=== PATIENT | male | born 1975 | race Caucasian/White ===

== ENCOUNTER → 2016-09-28 | Outpatient (CLI) | payer OTHER ==
[2016-09-28 12:54] LABS: ESTIMATED AVERAGE GLUCOSE 134 mg/dl; HA1C FLAG Normal (Normal)
[2016-09-28 13:14] LABS: TOTAL IRON BINDING CAPACITY 342 mcg/dl (250-450)
[2016-09-28 13:27] LABS: CALCIUM 10.2 mg/dl (8.5-10.1)
[2016-09-28 13:29] LABS: ALT/SGPT 96 U/L (12-78); AST/SGOT 65 U/L (15-37); BLOOD UREA NITROGEN 18 mg/dl (7-18); CARBON DIOXIDE 30 mmol/L (21-32); CHLORIDE 103 mmol/L (98-107); GLUCOSE 112 mg/dl (70-99); POTASSIUM 3.4 mmol/L (3.5-5.1); SODIUM 141 mmol/L (136-145)
[2016-09-28 13:34] LABS: ALB/GLOB RATIO 1.2 (0.9-2); ALKALINE PHOSPHATASE 46 U/L (45-117); FERRITIN 428.1 ng/ml (8.0-388.0)
--- NOTE | 2016-10-07 09:05 | CODING QUERY MEDICAL NECESSITY ---
CQSUPPORTING DIAGNOSIS NEEDED A supporting diagnosis is required for the test/procedure performed on this patient in order for us to be reimbursed by the patient's insurance. Please provide a supporting diagnosis for the following test/procedure listed below next to the test name along with your signature. *If there is no additional diagnosis for this patient that would support the following test/procedure please document that below next to the test/procedure. Test(s)/Procedure(s) that require a supporting diagnosis: DOS 09/28/16 GLYCATED HEMOGLOBIN TEST Provider Signature: Date: Thank you Marah Calderon Health Information Management Once completed, please kindly fax back to [phone] For questions please call [phone]
== END | disposition home or self-care (01) ==
LOC: C.LABPBG 07:36
PROVIDERS: ATTEND Family Medicine
DX: R74.0 Nonspecific elevation of levels of transaminase and lactic acid dehydrogenase [LDH] (principal); R73.03 Prediabetes; I10 Essential (primary) hypertension

== ENCOUNTER → 2016-11-02 | Outpatient (CLI) | payer OTHER | END | disposition home or self-care (01) | LOC: C.LABPBG 07:58 | PROVIDERS: ATTEND Neuromusculoskeletal Medicine & OMM | DX: E78.1 Pure hyperglyceridemia (principal) ==

== ENCOUNTER → 2016-12-29 | Outpatient (CLI) | payer OTHER ==
[2016-12-29 12:12] LABS: ESTIMATED AVERAGE GLUCOSE 134 mg/dl; HA1C FLAG Normal (Normal)
[2016-12-29 12:16] LABS: ALT/SGPT 56 U/L (12-78); AST/SGOT 35 U/L (15-37); BLOOD UREA NITROGEN 21 mg/dl (7-18); BUN/CREATININE RATIO 15.3 (10-20); CALCIUM 9.9 mg/dl (8.5-10.1); CARBON DIOXIDE 29 mmol/L (21-32); CHLORIDE 102 mmol/L (98-107); CHOLESTEROL 149 mg/dl (0-200); GLUCOSE 93 mg/dl (70-99); POTASSIUM 3.7 mmol/L (3.5-5.1); SODIUM 139 mmol/L (136-145)
[2016-12-29 12:18] LABS: ALB/GLOB RATIO 1.2 (0.9-2); ALKALINE PHOSPHATASE 31 U/L (45-117); CHOLESTEROL/HDL RATIO 4.1; HDL CHOLESTEROL 36 mg/dl; LDL CHOLESTEROL CALCULATED 89 mg/dl; TRIGLYCERIDES 119 mg/dl (0-150); VERY LOW DENSITY LIPOPROT CALC 24 mg/dl
== END | disposition home or self-care (01) ==
LOC: C.LABPBG 07:48
PROVIDERS: ATTEND Family Medicine
DX: E78.1 Pure hyperglyceridemia (principal); R73.03 Prediabetes; R74.8 Abnormal levels of other serum enzymes

== ENCOUNTER → 2017-06-25 | Outpatient (CLI) | payer OTHER ==
[2017-06-25 14:06] LABS: ALBUMIN 4.5 gm/dl (3.4-5.0); ALT/SGPT 58 U/L (12-78); BLOOD UREA NITROGEN 24 mg/dl (7-18); CALCIUM 9.5 mg/dl (8.5-10.1); CARBON DIOXIDE 28 mmol/L (21-32); CHOLESTEROL 153 mg/dl (0-200); CREATININE 1.37 mg/dl (0.60-1.40); GLUCOSE 102 mg/dl (70-99); POTASSIUM 3.9 mmol/L (3.5-5.1); SODIUM 138 mmol/L (136-145)
[2017-06-25 14:09] LABS: ALKALINE PHOSPHATASE 29 U/L (45-117); AST/SGOT 38 U/L (15-37); LDL CHOLESTEROL CALCULATED 96 mg/dl; TOTAL PROTEIN 7.9 gm/dl (6.4-8.2)
[2017-06-26 07:49] LABS: HEMOGLOBIN A1C 6.3 % (4.5-5.6)
== END | disposition home or self-care (01) ==
LOC: C.LABPBG 07:44
PROVIDERS: ATTEND Family Medicine
DX: Q24.9 Congenital malformation of heart, unspecified (principal); E78.1 Pure hyperglyceridemia; R74.8 Abnormal levels of other serum enzymes; R73.03 Prediabetes

== ENCOUNTER 2019-12-03 20:56 | Observation (INO) ==
[2019-12-03] MEDS ORDERED: CEFEPIME 2,000 MG/20 ML VIAL IV STA (21:27)
[2019-12-03] MEDS ORDERED: SODIUM CHLORIDE 0.9% 1000ML 1,000 ML IV SCH (21:30)
[2019-12-03 22:28] LABS: iSTAT Hemoglobin 13.6 g/dl (14.0-18.0); iSTAT Ionized Calcium 1.26 mmol/l (1.12-1.32); iSTAT Potassium 3.6 mmol/L (3.3-5.0)
[2019-12-03 22:34] LABS: Alanine Aminotransferase 23 U/L (12-78); Albumin Level 3.9 gm/dl (3.4-5.0); Aspartate Aminotransferase 26 U/L (15-37); BUN Creatinine Ratio 14.5 (10-20); Blood Urea Nitrogen 17 mg/dl (7-18); Calcium 9.7 mg/dl (8.5-10.1); Carbon Dioxide 26 mmol/L (21-32); Chloride 101 mmol/L (98-107); Creatinine Clr Calc Pharmacy 79.7 ml/min; Est GFR (African American) 85.6; Est GFR (Non-African American) 73.8; Glucose 129 mg/dl (70-99); Potassium 3.7 mmol/L (3.5-5.1); Sodium 133 mmol/L (136-145)
[2019-12-03] MEDS ORDERED: IOVERSOL 100ml IV ONE (22:36)
[2019-12-03 22:42] LABS: Albumin Globulin Ratio 0.9 (0.9-2); Alkaline Phosphatase 29 U/L (45-117); Globulin 4.5 gm/dl (2.5-4.0); Total Protein 8.4 gm/dl (6.4-8.2); Troponin I < 0.015 ng/ml (0-0.045)
--- NOTE | 2019-12-03 23:11 | Emergency Department Note ---
History of Present Illness General Chief complaint: Infection, Wound Stated complaint: ABCESS, LT SIDE, DENTAL PAIN Time Seen by Provider: 12/03/19 21:10 Source: patient Mode of arrival: ambulatory Limitations: no limitations History of Present Illness Provider complaint: Left side facial swelling Onset (ago): day(s) 2 Location: face Radiation: non-radiation Severity: moderate Pain Consistency: + constant Maximum Pain Intensity: 4 Current Pain Intensity: 4 Quality: + aching Relieved By: + none Exacerbated By: + movement and + other (palpation) Associated symptoms: + denies other symptoms Treatments prior to arrival: NSAID and other (Amoxicillin, PCN) This 44-year-old male patient with significant past medical history of congenital heart disease, multiple open heart surgeries, and dental infections presents to the emergency department today via private vehicle accompanied by his father. The patient is complaining of left sided facial swelling and a possible abscessed tooth. The patient states his left cheek became puffy yesterday. He awoke yesterday morning with a sore gum, then noticed the swelling last evening. His father started him on amoxicillin which was left over from a previous prescription, and today he was able to contact a medical provider and was given a prescription for penicillin. He has been taking this medication throughout the day today, but continued to notice worsening swelling and redness of the left side of the face. The patient did have a fever of 101 F earlier today. The patient did have Advil at 4 PM this evening. His father does report history of dental abscess and infections in the past, managed with root canals and antibiotics as well as antibiotic mouthwash. Patient did have a similar infection in the gum last year, but this seemed to improve with antibiotics. The patient rates his pain a 4/10 and describes it as throbbing. He denies any chest pain, dyspnea, nausea, vomiting, numbness, tingling, or weakness. He denies any history of pericarditis or endocarditis. Home Medications Home Medications Medication Instructions Recorded Confirmed Type clotrimazole 1 % topical cream 1 appln TOPICAL BID PRN #45 gm 12/30/18 12/03/19 History lisinopril 10 mg tablet 10 mg PO QAM #30 tab 12/30/18 12/03/19 History multivitamin 1 tab PO QAM 12/30/18 12/03/19 History hydrochlorothiazide 25 mg PO QAM 04/25/19 12/03/19 History pantoprazole 40 mg PO QAM 04/25/19 12/03/19 History fenofibrate nanocrystallized 145 145 mg PO QAM #90 tab 07/19/19 12/03/19 Rx mg tablet Penicillin Tab 500 mg PO TID 12/03/19 12/03/19 History ibuprofen [Advil] 400 - 600 mg PO Q6H PRN 12/03/19 12/03/19 History Allergies Allergy/AdvReac Type Severity Reaction Status Date / Time No Known Drug Allergies Allergy Verified 08/29/19 13:07 Past Med/Surg History Medical History Carpal tunnel syndrome of left wrist Cognitive developmental delay Congenital heart disease FOLLOWS WITH [facility] GERD without esophagitis Hypertension Hypertriglyceridemia Iron deficiency Prediabetes DIET CONTROL Pulmonary vein stenosis FOLLOWS WITH [facility] 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 MCKNIGHT> @ [facility] History of cardiac cath 2 YRS AGO >JUST FOR FOLLOW UP OF 2010 HEART SURGERY> [facility] > NO STENTS S/P carpal tunnel release Family History Grandfather Colorectal cancer Myocardial infarction Father Diabetes Brother Melanoma Denies family history of Ovarian cancer Prostate cancer Breast cancer Social History Smoking Status: Never smoker Second Hand Exposure: No; Hx Alcohol Use: Yes Alcohol type: beer Alcohol Intake Frequency Comment: socially Hx Substance Use: No Preferred Language: Upper Sorbian Communication Ability: Effective Visual Impairment: No Limitations Hearing Ability: Normal Collar Stay Fuser Tender Required: No Beliefs That Will Affect Care: None marital status: Single Current Living Situation: Family current occupational status: unemployed Feels Safe at Home: Yes Childhood Exposure to Second-Hand Smoke: No caffeine: Yes (Soda x 1 per day.) during the past year weight has: remained stable Dental Care, Regularly: Yes Physical Activity Frequency: 3-4 Times per Week Seatbelt Use: always Sunscreen Use: Yes Review of Systems A total of 10 systems reviewed and were otherwise negative Physical Exam Vital Signs Vital Signs - 24 hr 12/03/19 21:01 12/03/19 23:00 12/03/19 23:25 Temperature 37.5 C Temperature Source Oral Pulse Rate 105 H 95 H Pulse Rate [Left Radial] 96 H Pulse Rhythm [Left Radial] Regular Pulse Strength [Left Radial] Normal Respiratory Rate 20 18 30 H Respiratory Effort / Characteristics Non-Labored Spontaneous Non-Labored Respiratory Depth Normal Normal Respiratory Pattern Regular Blood Pressure 126/77 138/82 Blood Pressure [Right Arm] 138/82 Blood Pressure Mean 93 92 Blood Pressure Mean [Right Arm] 100 Blood Pressure Position [Right Arm] Lying Pulse Oximetry 100 97 97 Oxygen Delivery Method Room Air Room Air Room Air Sepsis Recent Fever Within 48 Hours Yes Sepsis New/Unexplained Change in Mental Status N/A Sepsis Action Taken by Nursing No Action Required VITALS: Vitals are noted on the nurse's note and reviewed by myself. Patient is tachycardic and tachypneic. He is afebrile at this time. He is normotensive and not hypoxic. GENERAL: This is a 44-year-old white male, in no acute distress, nondiaphoretic, well-developed well-nourished. SKIN: Erythema and edema of the left side of the face overlying the maxilla and extending to the buccal mucosa with tenderness of the left sinus to percussion. The skin was otherwise without rashes, erythema, edema, or bruising. There is no tenting of the skin. Capillary refill less than 2 seconds. HEAD: Normocephalic atraumatic. EARS: External auditory canals clear, tympanic membranes pearly pelaez without erythema or effusion bilaterally. EYES: Pupils equal round and reactive to light and accommodation. Conjunctivae without injection, sclerae without icterus. Extraocular movements intact. NOSE: Patent, turbinates without inflammation or discharge. No sinus tenderness. MOUTH: Mucous membranes moist. Tonsils are not enlarged. Pharynx without erythema or exudate. Uvula midline. Airway patent. Tongue does not deviate. Dental caries noted in the left upper teeth, but no tenderness to percussion. NECK: Supple without nuchal rigidity. Cervical and submandibular lymphadenopathy noted on the left. Cervical spine is nontender. No JVD. HEART: Regular rate and rhythm without murmurs gallops or rubs. LUNGS: Clear to auscultation bilaterally without wheezes, rales or rhonchi. No retractions or accessory muscle use. MUSCULOSKELETAL: No muscle atrophy, erythema, or edema noted. Full range of motion without joint tenderness in all extremities. No tenderness to palpation. Normal gait. Strength 5/5 throughout. NEURO: Patient was alert and oriented to person place and time. Normal sensation to light and sharp touch. No focal neurological deficits. Course Course The patient was seen and evaluated as above. An order was placed for continuous cardiac monitoring. The monitor shows a sinus tachycardia at a rate of 111 bpm. IV access obtained, labs drawn. Patient medicated with IV fluids and cefepime. Imaging performed and reviewed by myself and radiologist as noted. Labs reviewed by myself. I discussed the case with Dr. Baum, maxillofacial surgeon. He was agreeable that the patient would benefit from inpatient care and recommends admission to medicine and will consult in the morning. I discussed the findings and recommendation with the patient at bedside. He and his father were agreeable to admission. I discussed case with the sub plant manager. I discussed the case with Dr. Castellanos, [facility]. She did agree to see and evaluate the patient. I discussed the case with my attending. Discharge instructions reviewed, the patient was discharged home in good condition. Administered Medications Discontinued Medications Sodium Chloride (Nss 1000ml) 1,000 mls @ 999 mls/hr IV .Q1H1M EMRE Stop: 12/03/19 22:30 Last Infusion: 12/03/19 23:22 Dose: 0 mls/hr Documented by: [id number] Admin: 12/03/19 22:24 Dose: 999 mls/hr Documented by: [id number] Cefepime HCl (Maxipime) 2,000 mg in 20 mls @ 5 mls/min IV NOW STA; Protocol Stop: 12/03/19 21:30 Last Admin: 12/03/19 22:24 Dose: 5 mls/min Documented by: [id number] Ioversol (Ioversol 100ml) 93 ml IV ONCE ONE Stop: 12/03/19 22:37 Last Admin: 12/03/19 22:36 Dose: 93 ml Documented by: [id number] Medical Decision Making Differential Diagnosis Cellulitis, abscess, MRSA infection, necrotizing fasciitis, allergic reaction, Jef's angina, Vincent's angina, malignancy, as well as other pathologies. Medical Records Attestation: I reviewed the patient's medical records. Home Medications Current Medication List: was personally reviewed by me Laboratory Data Attestation: I reviewed the patient's lab results. Mild leukocytosis of 11,000. Mild anemia with a hemoglobin of 12.8, hematocrit of 37.2. Renal, hepatic function and electrolytes without significant abnormality. Glucose 130. Troponin negative. Procalcitonin 0.05. Lactic acid 1.4. Blood cultures pending. Result diagrams: 12/03/19 23:07 12/03/19 22:00 Lab Results 12/03/19 12/03/19 12/03/19 Range/Units 22:00 22:00 22:00 WBC Cancelled RBC Cancelled Hgb Cancelled POC Hgb (14.0-18.0) g/dl Hct Cancelled POC Hct (42-52) % MCV Cancelled MCH Cancelled MCHC Cancelled RDW Std Deviation Cancelled RDW Coeff of Kathy Cancelled Plt Count Cancelled MPV Cancelled Immature Gran % (Auto) Cancelled Neut % (Auto) Cancelled Lymph % (Auto) Cancelled Leake % (Auto) Cancelled Eos % (Auto) Cancelled Baso % (Auto) Cancelled Neut # (Auto) Cancelled Lymph # (Auto) Cancelled Leake # (Auto) Cancelled Eos # (Auto) Cancelled Baso # (Auto) Cancelled Immature Gran # (Auto) Cancelled Absolute Nucleated RBC Cancelled Nucleated RBC % (auto) Cancelled Neutrophils % (Manual) Cancelled Band Neutrophils % Cancelled Lymphocytes % (Manual) Cancelled Prolymphocyte % Cancelled Reactive Lymphs % (Man) Cancelled Monocytes % (Manual) Cancelled Eosinophils % (Manual) Cancelled Basophils % (Manual) Cancelled Metamyelocytes % (Man) Cancelled Myelocytes % (Man) Cancelled Promyelocytes % (Man) Cancelled Blast Cells % (Manual) Cancelled Plasma Cell % (Manual) Cancelled Other Cells % Cancelled Nucleated RBC % Cancelled Neutrophils # (Manual) Cancelled Band Neutrophils # Cancelled Total Absolute Neuts Cancelled Lymphocytes # (Manual) Cancelled Prolymphocyte # Cancelled Reactive Lymphs # Cancelled Total Abs Lymphocytes Cancelled Monocytes # (Manual) Cancelled Eosinophils # (Manual) Cancelled Basophils # (Manual) Cancelled Metamyelocytes # (Man) Cancelled Myelocytes # (Manual) Cancelled Promyelocytes # (Man) Cancelled Blast Cells # (Man) Cancelled Plasma Cell # (Manual) Cancelled Other Cells # Cancelled Nucleated RBCs # (Man) Cancelled Hypersegmented Neuts Cancelled Hyposegmented Neuts Cancelled Hypogranular Neuts Cancelled Large Granular Lymphs Cancelled # Lrg Granular Lymphs Cancelled Hairy Cells Cancelled Smudge Cells Cancelled Toxic Granulation Cancelled Toxic Vacuolation Cancelled Dohle Bodies Cancelled Antionette Rods Cancelled Platelet Estimate Cancelled Hypogranular Platelets Cancelled Clumped Platelets Cancelled Giant Platelets Cancelled Platelet Satelliting Cancelled RBC Morphology Cancelled Polychromasia Cancelled Hypochromasia Cancelled Poikilocytosis Cancelled Basophilic Stippling Cancelled Anisocytosis Cancelled Microcytosis Cancelled Macrocytosis Cancelled Spherocytes Cancelled Pappenheimer Bodies Cancelled Sickle Cells Cancelled Target Cells Cancelled Tear Drop Cells Cancelled Ovalocytes Cancelled Stomatocytes Cancelled Kolb-Young Bodies Cancelled Echinocytes Cancelled Acanthocytes (Spur) Cancelled Rouleaux Cancelled RBC Agglutinates Cancelled Schistocytes Cancelled RBC Morph Comment Cancelled Sezary Cell Cancelled PT Cancelled INR Cancelled APTT Cancelled PTT Ratio Cancelled POC Sodium (135-144) mmol/L Sodium 133 L (136-145) mmol/L POC Potassium (3.3-5.0) mmol/L Potassium 3.7 (3.5-5.1) mmol/L POC Chloride (101-112) mmol/L Chloride 101 (98-107) mmol/L Carbon Dioxide 26 (21-32) mmol/L POC Total CO2 (24-31) mmol/L Anion Gap 7.0 (3-11) POC Anion Gap (16-25) mmol/L POC BUN (7-18) mg/dl BUN 17 (7-18) mg/dl Creatinine 1.19 (0.6-1.4) mg/dl POC Creatinine (0.6-1.3) mg/dl Est Cr Clr Drug Dosing 79.7 ml/min Est GFR ( Amer) 85.6 Est GFR (Non-Af Amer) 73.8 BUN/Creatinine Ratio 14.5 (10-20) Glucose 129 H (70-99) mg/dl POC Glucose (other) (70-99) mg/dl Lactate (0.4-2.0) mmol/L Calcium 9.7 (8.5-10.1) mg/dl POC Ioniz Calcium Sue (1.12-1.32) mmol/l Magnesium 2.0 (1.8-2.4) mg/dl Total Bilirubin 1.0 (0.2-1) mg/dl AST 26 (15-37) U/L ALT 23 (12-78) U/L Alkaline Phosphatase 29 L (45-117) U/L Troponin I < 0.015 (0-0.045) ng/ml Total Protein 8.4 H (6.4-8.2) gm/dl Albumin 3.9 (3.4-5.0) gm/dl Globulin 4.5 H (2.5-4.0) gm/dl Albumin/Globulin Ratio 0.9 (0.9-2) Procalcitonin (0-0.5) ng/ml Specimen Hemolysis 12/03/19 12/03/19 12/03/19 Range/Units 22:00 22:00 22:14 WBC RBC Hgb POC Hgb 13.6 L (14.0-18.0) g/dl Hct POC Hct 40 L (42-52) % MCV MCH MCHC RDW Std Deviation RDW Coeff of Kathy Plt Count MPV Immature Gran % (Auto) Neut % (Auto) Lymph % (Auto) Leake % (Auto) Eos % (Auto) Baso % (Auto) Neut # (Auto) Lymph # (Auto) Leake # (Auto) Eos # (Auto) Baso # (Auto) Immature Gran # (Auto) Absolute Nucleated RBC Nucleated RBC % (auto) Neutrophils % (Manual) Band Neutrophils % Lymphocytes % (Manual) Prolymphocyte % Reactive Lymphs % (Man) Monocytes % (Manual) Eosinophils % (Manual) Basophils % (Manual) Metamyelocytes % (Man) Myelocytes % (Man) Promyelocytes % (Man) Blast Cells % (Manual) Plasma Cell % (Manual) Other Cells % Nucleated RBC % Neutrophils # (Manual) Band Neutrophils # Total Absolute Neuts Lymphocytes # (Manual) Prolymphocyte # Reactive Lymphs # Total Abs Lymphocytes Monocytes # (Manual) Eosinophils # (Manual) Basophils # (Manual) Metamyelocytes # (Man) Myelocytes # (Manual) Promyelocytes # (Man) Blast Cells # (Man) Plasma Cell # (Manual) Other Cells # Nucleated RBCs # (Man) Hypersegmented Neuts Hyposegmented Neuts Hypogranular Neuts Large Granular Lymphs # Lrg Granular Lymphs Hairy Cells Smudge Cells Toxic Granulation Toxic Vacuolation Dohle Bodies Antionette Rods Platelet Estimate Hypogranular Platelets Clumped Platelets Giant Platelets Platelet Satelliting RBC Morphology Polychromasia Hypochromasia Poikilocytosis Basophilic Stippling Anisocytosis Microcytosis Macrocytosis Spherocytes Pappenheimer Bodies Sickle Cells Target Cells Tear Drop Cells Ovalocytes Stomatocytes Kolb-Young Bodies Echinocytes Acanthocytes (Spur) Rouleaux RBC Agglutinates Schistocytes RBC Morph Comment Sezary Cell PT INR APTT PTT Ratio POC Sodium 135 (135-144) mmol/L Sodium (136-145) mmol/L POC Potassium 3.6 (3.3-5.0) mmol/L Potassium (3.5-5.1) mmol/L POC Chloride 99 L (101-112) mmol/L Chloride (98-107) mmol/L Carbon Dioxide (21-32) mmol/L POC Total CO2 23 L (24-31) mmol/L Anion Gap (3-11) POC Anion Gap 18.0 (16-25) mmol/L POC BUN 18 (7-18) mg/dl BUN (7-18) mg/dl Creatinine (0.6-1.4) mg/dl POC Creatinine 1.0 (0.6-1.3) mg/dl Est Cr Clr Drug Dosing ml/min Est GFR ( Amer) Est GFR (Non-Af Amer) BUN/Creatinine Ratio (10-20) Glucose (70-99) mg/dl POC Glucose (other) 130 H (70-99) mg/dl Lactate 1.4 (0.4-2.0) mmol/L Calcium (8.5-10.1) mg/dl POC Ioniz Calcium Sue 1.26 (1.12-1.32) mmol/l Magnesium (1.8-2.4) mg/dl Total Bilirubin (0.2-1) mg/dl AST (15-37) U/L ALT (12-78) U/L Alkaline Phosphatase (45-117) U/L Troponin I (0-0.045) ng/ml Total Protein (6.4-8.2) gm/dl Albumin (3.4-5.0) gm/dl Globulin (2.5-4.0) gm/dl Albumin/Globulin Ratio (0.9-2) Procalcitonin 0.05 (0-0.5) ng/ml Specimen Hemolysis 12/03/19 12/03/19 Range/Units 23:07 23:07 WBC 11.58 H RBC 4.46 L Hgb 12.8 L POC Hgb (14.0-18.0) g/dl Hct 37.2 L POC Hct (42-52) % MCV 83.4 MCH 28.7 MCHC 34.4 RDW Std Deviation 37.9 RDW Coeff of Kathy 12.5 Plt Count 282 MPV 9.4 Immature Gran % (Auto) 0.2 Neut % (Auto) 82.9 Lymph % (Auto) 9.4 Leake % (Auto) 7.3 Eos % (Auto) 0.2 Baso % (Auto) 0.0 Neut # (Auto) 9.61 H Lymph # (Auto) 1.09 L Leake # (Auto) 0.84 H Eos # (Auto) 0.02 Baso # (Auto) 0.00 Immature Gran # (Auto) 0.02 Absolute Nucleated RBC Nucleated RBC % (auto) Neutrophils % (Manual) Band Neutrophils % Lymphocytes % (Manual) Prolymphocyte % Reactive Lymphs % (Man) Monocytes % (Manual) Eosinophils % (Manual) Basophils % (Manual) Metamyelocytes % (Man) Myelocytes % (Man) Promyelocytes % (Man) Blast Cells % (Manual) Plasma Cell % (Manual) Other Cells % Nucleated RBC % Neutrophils # (Manual) Band Neutrophils # Total Absolute Neuts Lymphocytes # (Manual) Prolymphocyte # Reactive Lymphs # Total Abs Lymphocytes Monocytes # (Manual) Eosinophils # (Manual) Basophils # (Manual) Metamyelocytes # (Man) Myelocytes # (Manual) Promyelocytes # (Man) Blast Cells # (Man) Plasma Cell # (Manual) Other Cells # Nucleated RBCs # (Man) Hypersegmented Neuts Hyposegmented Neuts Hypogranular Neuts Large Granular Lymphs # Lrg Granular Lymphs Hairy Cells Smudge Cells Toxic Granulation Toxic Vacuolation Dohle Bodies Antionette Rods Platelet Estimate Hypogranular Platelets Clumped Platelets Giant Platelets Platelet Satelliting RBC Morphology Polychromasia Hypochromasia Poikilocytosis Basophilic Stippling Anisocytosis Microcytosis Macrocytosis Spherocytes Pappenheimer Bodies Sickle Cells Target Cells Tear Drop Cells Ovalocytes Stomatocytes Kolb-Young Bodies Echinocytes Acanthocytes (Spur) Rouleaux RBC Agglutinates Schistocytes RBC Morph Comment Sezary Cell PT 11.1 INR 1.1 APTT 30.3 PTT Ratio 1.1 POC Sodium (135-144) mmol/L Sodium (136-145) mmol/L POC Potassium (3.3-5.0) mmol/L Potassium (3.5-5.1) mmol/L POC Chloride (101-112) mmol/L Chloride (98-107) mmol/L Carbon Dioxide (21-32) mmol/L POC Total CO2 (24-31) mmol/L Anion Gap (3-11) POC Anion Gap (16-25) mmol/L POC BUN (7-18) mg/dl BUN (7-18) mg/dl Creatinine (0.6-1.4) mg/dl POC Creatinine (0.6-1.3) mg/dl Est Cr Clr Drug Dosing ml/min Est GFR ( Amer) Est GFR (Non-Af Amer) BUN/Creatinine Ratio (10-20) Glucose (70-99) mg/dl POC Glucose (other) (70-99) mg/dl Lactate (0.4-2.0) mmol/L Calcium (8.5-10.1) mg/dl POC Ioniz Calcium Sue (1.12-1.32) mmol/l Magnesium (1.8-2.4) mg/dl Total Bilirubin (0.2-1) mg/dl AST (15-37) U/L ALT (12-78) U/L Alkaline Phosphatase (45-117) U/L Troponin I (0-0.045) ng/ml Total Protein (6.4-8.2) gm/dl Albumin (3.4-5.0) gm/dl Globulin (2.5-4.0) gm/dl Albumin/Globulin Ratio (0.9-2) Procalcitonin (0-0.5) ng/ml Specimen Hemolysis Imaging Data Radiologist's Impression: CT NECK: There is soft tissue swelling involving the subcutaneous soft tissues overlying the anterolateral aspect of the left maxilla. In addition, just adjacent to the inferior aspect of the anterior wall of the left maxillarysinus there is a fluid collection with peripheral enhancement and punctate air consistent with an abscess measuring 1.6 x 0.8 cmin axial dimension by1.3 cmin craniocaudal dimension. No bonyabnormalityin the adjacent maxilla or mandible. There is diffuse mucosal thickening of the left maxillarysinus, likelysequela of chronic sinusitis. Remainder of the paranasal sinuses and bilateral mastoids are clear. Lung apices are clear. Mild left-sided submandibular lymphadenopathy. This is likelyreactive. Radiologist: Rita Vasques MD ECG Data Attestation: I personally reviewed and interpreted this ECG as follows: Indication: + other (sepsis, hx. congenital heart disease) Rate (beats per minute): 97 Rhythm: + normal sinus ECG Intervals/blocks: + Right Bundle branch block ECG [place]: + Normal ECG ST segments: + T-wave inversions (Anterior, inferior) Comparison ECG Date: no prior available Blood Pressure Blood Pressure Findings: Elevated blood pressure Blood Pressure Disposition: elevated BP felt to be situational MDM Narrative This 44-year-old male patient presents emergency department today for evaluation of facial cellulitis, possible dental infection. He does have history of con genital heart disease. Patient was febrile earlier today and has developed rapidly progressing redness, swelling, and pain in the left side of the face. Given his history, vital signs, and physical examination, I did initiate septic work-up. The patient was immediately treated with cefepime and IV fluids. Laboratory evaluation with mild leukocytosis and mild anemia. CT imaging consistent with a left-sided facial cellulitis in the area of the left maxilla as well as abscess in the anterior inferior wall of the left maxillary sinus measuring 1.6 x 0.8 cm. I did discuss the case with the maxillofacial surgeon, Dr. Baum. He was agreeable that the patient would benefit from ongoing IV ant ibiotics and inpatient stay. Patient will be admitted to the [facility]. The chart was completed utilizing [employer] voice recognition software. Grammatical errors, random word insertions, pronoun errors, and incomplete sentences are an occasional consequence of this system due to software limitations, ambient noise, and hardware issues. Any formal questions or concern s about the content, text, or information contained within the body of this dictation should be directly addressed to the provider for clarification. Impression & Plan Cellulitis and abscess of face, Acute abscess of maxillary sinus, Fever, Tachycardia Discharge Plan Visit Data Chief Complaint: Infection, Wound Stated Complaint: ABCESS, LT SIDE, DENTAL PAIN ED Provider: Landen Gee ED Midlevel Provider: Dariana Ramon Discharge Problem: Cellulitis and abscess of face, Acute abscess of maxillary sinus, Fever, Tachycardia Patient Disposition: Admitted As Inpatient Forms Stand Alone Forms: [facility], Virtual Emergency Department, Important Visit Information Prescriptions Prescriptions: No Action fenofibrate nanocrystallized 145 mg tablet 145 mg PO QAM Qty: 90 RF: 1 clotrimazole 1 % cream 1 appln topical BID PRN (Reason: Rash) Qty: 45 RF: 0 lisinopril 10 mg tablet 10 mg PO QAM Qty: 30 RF: 0 multivitamin [Daily Multi-Vitamin] tablet 1 tab PO QAM RF: 0 pantoprazole 40 mg tablet,delayed release (DR/EC) 40 mg PO QAM RF: 0 hydrochlorothiazide 25 mg tablet 25 mg PO QAM RF: 0 ibuprofen [Advil] 200 mg Tablet 400 - 600 mg PO Q6H PRN (Reason: Pain) RF: 0 Penicillin Tab 500 mg PO TID RF: 0 Referrals Referrals: Johanna Moreno DO [Primary Care Provider] - Discharge Problem: Fever Qualifiers: Fever type: unspecified Qualified Code(s): R50.9 - Fever, unspecified
[2019-12-03 23:20] LABS: Eosinophils # (auto) 0.02 K/uL (0-0.5); Eosinophils % (auto) 0.2 %; Hematocrit (blood only) 37.2 % (42-52); Hemoglobin 12.8 g/dL (14.0-18.0); Immature Granulocytes # (auto) 0.02 K/uL (0.00-0.02); Immature Granulocytes % (auto) 0.2 %; Lymphocytes # (auto) 1.09 K/uL (1.2-3.4); Lymphocytes % (auto) 9.4 %; Mean Corpuscular Hemoglobin 28.7 pg (25-34); Mean Corpuscular Hgb Conc 34.4 g/dL (32-36); Mean Corpuscular Volume 83.4 fL (80-100); Mean Platelet Volume 9.4 fL (7.4-10.4); Monocytes # (auto) 0.84 K/uL (0.11-0.59); Monocytes % (auto) 7.3 %; Neutrophils # (auto) 9.61 K/uL (1.4-6.5); Neutrophils % (auto) 82.9 %; Platelet Count 282 K/uL (130-400); RDW Coefficient of Variation 12.5 % (11.5-14.5); RDW Standard Deviation 37.9 fL (36.4-46.3); Red Blood Count 4.46 M/uL (4.7-6.1); White Blood Count 11.58 K/uL (4.8-10.8)
[2019-12-03 23:31] LABS: INR 1.1 (0.9-1.1); Partial Thromboplastin Ratio 1.1; Partial Thromboplastin Time 30.3 Seconds (21.0-31.0); Prothrombin Time 11.1 Seconds (9.0-12.0)
--- NOTE | 2019-12-03 23:50 | Emergency Department Note ---
ED Visit Note The patient presents with a facial cellulitis. I have personally seen and evaluated the patient with the physician personnel assistant. I agree with the diagnostic/management decisions and have personally been involved in these decisions and agree with the diagnosis. .
--- NOTE | 2019-12-04 00:19 | History & Physical Report ---
Date of Service December 04, 2019 Assessment & Plan (1) Cellulitis and abscess of face: 44yo C male with history of congenital heart defect s/p repair, HTN/HLP/GERD presenting with cellulitis of left face, abscess. Patient afebrile, HD stable, nontoxic in appearance. -Observation to medical floor -Followup cultures sent from ER -Unasyn 3gm IV q 6 hours -Warm compresses -Tylenol as needed for pain or fever. Patient denies pain at this time -OMFS consultation - assistance appreciated -Possible OR tomorrow for abscess drainage. -Keep patient NPO overnight -Check pre-operative COVID-19 test Present on Admission?: Yes (2) Congenital heart disease: S/p surgical repair. Patient follows at [facility] in [place] Present on Admission?: Yes (3) GERD without esophagitis: Chronic. Well controlled -Continue Protonix 40mg po daily Present on Admission?: Yes (4) Hypertension: Blood pressure stable, 131/82 -Continue Lisinopril 10mg po qAM -Continue HCTZ 25mg po qAM -Continue to [facility] Present on Admission?: Yes (5) Hypertriglyceridemia: Chronic. -Continue Tricor 145mg po qAM F/E/N - NSS at 80mL/hr x 2 liters, electrolytes WNL, NPO for now Ppx - Low risk for DVT. Encourage ambulation. Protonix as above Code - Full per discussion with patient Dispo - Observation to medical floor Present on Admission?: Yes History of Present Illness Chief Complaint: facial cellulitis Primary Care Provider: Johanna Moreno DO Brian Babcock is a 44yo C male with history of congenital heart defect s/p repair, HTN, HLP and GERD presenting with left facial cellulitis. Patient had soreness of left maxillary gum on buccal side that began 2 days ago. . He took some Amoxicillin and Advil at home on Wednesday then took some Penicillin this morn ing. He notes some improvement in swelling. Pain is well controlled No trauma, no tooth complaints Patient denies swelling of throat, palate, difficulty swallowing or breathing. Denies drainage or foul taste in mouth. No additional complaints at this time. ER Course: Cefepime, IVF Allergies Allergy/AdvReac Type Severity Reaction Status Date / Time No Known Drug Allergies Allergy Verified 08/29/19 13:07 Home Medications Home Medications Medication Instructions Recorded Confirmed Type clotrimazole 1 % topical cream 1 appln TOPICAL BID PRN #45 gm 12/30/18 12/03/19 History lisinopril 10 mg tablet 10 mg PO QAM #30 tab 12/30/18 12/03/19 History multivitamin 1 tab PO QAM 12/30/18 12/03/19 History hydrochlorothiazide 25 mg PO QAM 04/25/19 12/03/19 History pantoprazole 40 mg PO QAM 04/25/19 12/03/19 History fenofibrate nanocrystallized 145 145 mg PO QAM #90 tab 07/19/19 12/03/19 Rx mg tablet Penicillin Tab 500 mg PO TID 12/03/19 12/03/19 History ibuprofen [Advil] 400 - 600 mg PO Q6H PRN 12/03/19 12/03/19 History Past Med/Surg History Medical History Carpal tunnel syndrome of left wrist Cognitive developmental delay Congenital heart disease FOLLOWS WITH [facility] GERD without esophagitis Hypertension Hypertriglyceridemia Iron deficiency Prediabetes DIET CONTROL Pulmonary vein stenosis FOLLOWS WITH [facility] 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 MCKNIGHT> @ [facility] History of cardiac cath 2 YRS AGO >JUST FOR FOLLOW UP OF 2010 HEART SURGERY> [facility] > NO STENTS S/P carpal tunnel release Family History Grandfather Colorectal cancer Myocardial infarction Father Diabetes Brother Melanoma Denies family history of Ovarian cancer Prostate cancer Breast cancer Social History Smoking Status: Never smoker Second Hand Exposure: No; Hx Alcohol Use: No Hx Substance Use: No Preferred Language: Occitan Communication Ability: Effective Visual Impairment: No Limitations Hearing Ability: Normal Floor Finisher Required: No Beliefs That Will Affect Care: None marital status: Single Current Living Situation: Parent current occupational status: unemployed Other Information That Helps Us Care for You: No Feels Safe at Home: Yes Safety Concerns: Feels Safe At This Time Childhood Exposure to Second-Hand Smoke: No caffeine: Yes (Soda x 1 per day.) during the past year weight has: remained stable Dental Care, Regularly: Yes Physical Activity Frequency: 3-4 Times per Week Seatbelt Use: always Sunscreen Use: Yes Review of Systems Review of Systems: All systems reviewed & are unremarkable except as noted in HPI & below Physical Exam Physical Exam: General: patient resting comfortably, NAD, non-toxic in appearance, AA&O x 4 Skin: warm, dry, intact, redness and swelling of left face HEENT: NC/AT, PERRL, EOMI, anicteric sclera, conjunctiva without injection, external ear normal to inspection and nontender, nares patent, moist mucus membranes, dentition intact, no oropharyngeal lesions, neck supple, trachea midline, no LAD, no thyromegaly, no JVD. Redness and swelling of left face, tender to palpation. Heart: +S1/S2, regular, no m/r/g Lungs: equal air entry bilaterally, no rales/rhonchi/wheezes Abd: +BS, soft, NT/ND, no masses/organomegaly/ascites Ext: warm, 2+ pulses in UE/LE bilaterally, no clubbing/cyanosis or edema Neuro: nonfocal, patient AA&O x 4, speech intact, no facial droop, moving all extremities on command with equal strength 5/5 Results & Data Results & Data ([facility]) Vital Signs (Past 12 Hours) Vital Signs Temp Pulse Pulse Resp BP BP Pulse Ox 12/03/19 23:25 95 H 30 H 138/82 97 12/03/19 23:00 96 H 18 138/82 97 12/03/19 21:01 37.5 C 105 H 20 126/77 100 Laboratory Results Lab Results 12/03/19 12/03/19 12/03/19 Range/Units 22:00 22:00 22:00 WBC Cancelled RBC Cancelled Hgb Cancelled POC Hgb (14.0-18.0) g/dl Hct Cancelled POC Hct (42-52) % MCV Cancelled MCH Cancelled MCHC Cancelled RDW Std Deviation Cancelled RDW Coeff of Kathy Cancelled Plt Count Cancelled MPV Cancelled Immature Gran % (Auto) Cancelled Neut % (Auto) Cancelled Lymph % (Auto) Cancelled Letcher % (Auto) Cancelled Eos % (Auto) Cancelled Baso % (Auto) Cancelled Neut # (Auto) Cancelled Lymph # (Auto) Cancelled Letcher # (Auto) Cancelled Eos # (Auto) Cancelled Baso # (Auto) Cancelled Immature Gran # (Auto) Cancelled Absolute Nucleated RBC Cancelled Nucleated RBC % (auto) Cancelled Neutrophils % (Manual) Cancelled Band Neutrophils % Cancelled Lymphocytes % (Manual) Cancelled Prolymphocyte % Cancelled Reactive Lymphs % (Man) Cancelled Monocytes % (Manual) Cancelled Eosinophils % (Manual) Cancelled Basophils % (Manual) Cancelled Metamyelocytes % (Man) Cancelled Myelocytes % (Man) Cancelled Promyelocytes % (Man) Cancelled Blast Cells % (Manual) Cancelled Plasma Cell % (Manual) Cancelled Other Cells % Cancelled Nucleated RBC % Cancelled Neutrophils # (Manual) Cancelled Band Neutrophils # Cancelled Total Absolute Neuts Cancelled Lymphocytes # (Manual) Cancelled Prolymphocyte # Cancelled Reactive Lymphs # Cancelled Total Abs Lymphocytes Cancelled Monocytes # (Manual) Cancelled Eosinophils # (Manual) Cancelled Basophils # (Manual) Cancelled Metamyelocytes # (Man) Cancelled Myelocytes # (Manual) Cancelled Promyelocytes # (Man) Cancelled Blast Cells # (Man) Cancelled Plasma Cell # (Manual) Cancelled Other Cells # Cancelled Nucleated RBCs # (Man) Cancelled Hypersegmented Neuts Cancelled Hyposegmented Neuts Cancelled Hypogranular Neuts Cancelled Large Granular Lymphs Cancelled # Lrg Granular Lymphs Cancelled Hairy Cells Cancelled Smudge Cells Cancelled Toxic Granulation Cancelled Toxic Vacuolation Cancelled Dohle Bodies Cancelled Antionette Rods Cancelled Platelet Estimate Cancelled Hypogranular Platelets Cancelled Clumped Platelets Cancelled Giant Platelets Cancelled Platelet Satelliting Cancelled RBC Morphology Cancelled Polychromasia Cancelled Hypochromasia Cancelled Poikilocytosis Cancelled Basophilic Stippling Cancelled Anisocytosis Cancelled Microcytosis Cancelled Macrocytosis Cancelled Spherocytes Cancelled Pappenheimer Bodies Cancelled Sickle Cells Cancelled Target Cells Cancelled Tear Drop Cells Cancelled Ovalocytes Cancelled Stomatocytes Cancelled Kol[place] Bodies Cancelled Echinocytes Cancelled Acanthocytes (Spur) Cancelled Rouleaux Cancelled RBC Agglutinates Cancelled Schistocytes Cancelled RBC Morph Comment Cancelled Sezary Cell Cancelled PT Cancelled INR Cancelled APTT Cancelled PTT Ratio Cancelled POC Sodium (135-144) mmol/L Sodium 133 L (136-145) mmol/L POC Potassium (3.3-5.0) mmol/L Potassium 3.7 (3.5-5.1) mmol/L POC Chloride (101-112) mmol/L Chloride 101 (98-107) mmol/L Carbon Dioxide 26 (21-32) mmol/L POC Total CO2 (24-31) mmol/L Anion Gap 7.0 (3-11) POC Anion Gap (16-25) mmol/L POC BUN (7-18) mg/dl BUN 17 (7-18) mg/dl Creatinine 1.19 (0.6-1.4) mg/dl POC Creatinine (0.6-1.3) mg/dl Est Cr Clr Drug Dosing 79.7 ml/min Est GFR ( Amer) 85.6 Est GFR (Non-Af Amer) 73.8 BUN/Creatinine Ratio 14.5 (10-20) Glucose 129 H (70-99) mg/dl POC Glucose (other) (70-99) mg/dl Lactate (0.4-2.0) mmol/L Calcium 9.7 (8.5-10.1) mg/dl POC Ioniz Calcium Sue (1.12-1.32) mmol/l Magnesium 2.0 (1.8-2.4) mg/dl Total Bilirubin 1.0 (0.2-1) mg/dl AST 26 (15-37) U/L ALT 23 (12-78) U/L Alkaline Phosphatase 29 L (45-117) U/L Troponin I < 0.015 (0-0.045) ng/ml Total Protein 8.4 H (6.4-8.2) gm/dl Albumin 3.9 (3.4-5.0) gm/dl Globulin 4.5 H (2.5-4.0) gm/dl Albumin/Globulin Ratio 0.9 (0.9-2) Procalcitonin (0-0.5) ng/ml Specimen Hemolysis 12/03/19 12/03/19 12/03/19 Range/Units 22:00 22:00 22:14 WBC RBC Hgb POC Hgb 13.6 L (14.0-18.0) g/dl Hct POC Hct 40 L (42-52) % MCV MCH MCHC RDW Std Deviation RDW Coeff of Kathy Plt Count MPV Immature Gran % (Auto) Neut % (Auto) Lymph % (Auto) Letcher % (Auto) Eos % (Auto) Baso % (Auto) Neut # (Auto) Lymph # (Auto) Letcher # (Auto) Eos # (Auto) Baso # (Auto) Immature Gran # (Auto) Absolute Nucleated RBC Nucleated RBC % (auto) Neutrophils % (Manual) Band Neutrophils % Lymphocytes % (Manual) Prolymphocyte % Reactive Lymphs % (Man) Monocytes % (Manual) Eosinophils % (Manual) Basophils % (Manual) Metamyelocytes % (Man) Myelocytes % (Man) Promyelocytes % (Man) Blast Cells % (Manual) Plasma Cell % (Manual) Other Cells % Nucleated RBC % Neutrophils # (Manual) Band Neutrophils # Total Absolute Neuts Lymphocytes # (Manual) Prolymphocyte # Reactive Lymphs # Total Abs Lymphocytes Monocytes # (Manual) Eosinophils # (Manual) Basophils # (Manual) Metamyelocytes # (Man) Myelocytes # (Manual) Promyelocytes # (Man) Blast Cells # (Man) Plasma Cell # (Manual) Other Cells # Nucleated RBCs # (Man) Hypersegmented Neuts Hyposegmented Neuts Hypogranular Neuts Large Granular Lymphs # Lrg Granular Lymphs Hairy Cells Smudge Cells Toxic Granulation Toxic Vacuolation Dohle Bodies Antionette Rods Platelet Estimate Hypogranular Platelets Clumped Platelets Giant Platelets Platelet Satelliting RBC Morphology Polychromasia Hypochromasia Poikilocytosis Basophilic Stippling Anisocytosis Microcytosis Macrocytosis Spherocytes Pappenheimer Bodies Sickle Cells Target Cells Tear Drop Cells Ovalocytes Stomatocytes Kolb-[place] Bodies Echinocytes Acanthocytes (Spur) Rouleaux RBC Agglutinates Schistocytes RBC Morph Comment Sezary Cell PT INR APTT PTT Ratio POC Sodium 135 (135-144) mmol/L Sodium (136-145) mmol/L POC Potassium 3.6 (3.3-5.0) mmol/L Potassium (3.5-5.1) mmol/L POC Chloride 99 L (101-112) mmol/L Chloride (98-107) mmol/L Carbon Dioxide (21-32) mmol/L POC Total CO2 23 L (24-31) mmol/L Anion Gap (3-11) POC Anion Gap 18.0 (16-25) mmol/L POC BUN 18 (7-18) mg/dl BUN (7-18) mg/dl Creatinine (0.6-1.4) mg/dl POC Creatinine 1.0 (0.6-1.3) mg/dl Est Cr Clr Drug Dosing ml/min Est GFR ( Amer) Est GFR (Non-Af Amer) BUN/Creatinine Ratio (10-20) Glucose (70-99) mg/dl POC Glucose (other) 130 H (70-99) mg/dl Lactate 1.4 (0.4-2.0) mmol/L Calcium (8.5-10.1) mg/dl POC Ioniz Calcium Sue 1.26 (1.12-1.32) mmol/l Magnesium (1.8-2.4) mg/dl Total Bilirubin (0.2-1) mg/dl AST (15-37) U/L ALT (12-78) U/L Alkaline Phosphatase (45-117) U/L Troponin I (0-0.045) ng/ml Total Protein (6.4-8.2) gm/dl Albumin (3.4-5.0) gm/dl Globulin (2.5-4.0) gm/dl Albumin/Globulin Ratio (0.9-2) Procalcitonin 0.05 (0-0.5) ng/ml Specimen Hemolysis 12/03/19 12/03/19 Range/Units 23:07 23:07 WBC 11.58 H RBC 4.46 L Hgb 12.8 L POC Hgb (14.0-18.0) g/dl Hct 37.2 L POC Hct (42-52) % MCV 83.4 MCH 28.7 MCHC 34.4 RDW Std Deviation 37.9 RDW Coeff of Kathy 12.5 Plt Count 282 MPV 9.4 Immature Gran % (Auto) 0.2 Neut % (Auto) 82.9 Lymph % (Auto) 9.4 Letcher % (Auto) 7.3 Eos % (Auto) 0.2 Baso % (Auto) 0.0 Neut # (Auto) 9.61 H Lymph # (Auto) 1.09 L Letcher # (Auto) 0.84 H Eos # (Auto) 0.02 Baso # (Auto) 0.00 Immature Gran # (Auto) 0.02 Absolute Nucleated RBC Nucleated RBC % (auto) Neutrophils % (Manual) Band Neutrophils % Lymphocytes % (Manual) Prolymphocyte % Reactive Lymphs % (Man) Monocytes % (Manual) Eosinophils % (Manual) Basophils % (Manual) Metamyelocytes % (Man) Myelocytes % (Man) Promyelocytes % (Man) Blast Cells % (Manual) Plasma Cell % (Manual) Other Cells % Nucleated RBC % Neutrophils # (Manual) Band Neutrophils # Total Absolute Neuts Lymphocytes # (Manual) Prolymphocyte # Reactive Lymphs # Total Abs Lymphocytes Monocytes # (Manual) Eosinophils # (Manual) Basophils # (Manual) Metamyelocytes # (Man) Myelocytes # (Manual) Promyelocytes # (Man) Blast Cells # (Man) Plasma Cell # (Manual) Other Cells # Nucleated RBCs # (Man) Hypersegmented Neuts Hyposegmented Neuts Hypogranular Neuts Large Granular Lymphs # Lrg Granular Lymphs Hairy Cells Smudge Cells Toxic Granulation Toxic Vacuolation Dohle Bodies Antionette Rods Platelet Estimate Hypogranular Platelets Clumped Platelets Giant Platelets Platelet Satelliting RBC Morphology Polychromasia Hypochromasia Poikilocytosis Basophilic Stippling Anisocytosis Microcytosis Macrocytosis Spherocytes Pappenheimer Bodies Sickle Cells Target Cells Tear Drop Cells Ovalocytes Stomatocytes Kolb-[place] Bodies Echinocytes Acanthocytes (Spur) Rouleaux RBC Agglutinates Schistocytes RBC Morph Comment Sezary Cell PT 11.1 INR 1.1 APTT 30.3 PTT Ratio 1.1 POC Sodium (135-144) mmol/L Sodium (136-145) mmol/L POC Potassium (3.3-5.0) mmol/L Potassium (3.5-5.1) mmol/L POC Chloride (101-112) mmol/L Chloride (98-107) mmol/L Carbon Dioxide (21-32) mmol/L POC Total CO2 (24-31) mmol/L Anion Gap (3-11) POC Anion Gap (16-25) mmol/L POC BUN (7-18) mg/dl BUN (7-18) mg/dl Creatinine (0.6-1.4) mg/dl POC Creatinine (0.6-1.3) mg/dl Est Cr Clr Drug Dosing ml/min Est GFR ( Amer) Est GFR (Non-Af Amer) BUN/Creatinine Ratio (10-20) Glucose (70-99) mg/dl POC Glucose (other) (70-99) mg/dl Lactate (0.4-2.0) mmol/L Calcium (8.5-10.1) mg/dl POC Ioniz Calcium Sue (1.12-1.32) mmol/l Magnesium (1.8-2.4) mg/dl Total Bilirubin (0.2-1) mg/dl AST (15-37) U/L ALT (12-78) U/L Alkaline Phosphatase (45-117) U/L Troponin I (0-0.045) ng/ml Total Protein (6.4-8.2) gm/dl Albumin (3.4-5.0) gm/dl Globulin (2.5-4.0) gm/dl Albumin/Globulin Ratio (0.9-2) Procalcitonin (0-0.5) ng/ml Specimen Hemolysis Diagnostic Findings CT Neck - There is soft tissue swelling involving the subcutaneous soft tissues overlying the anterolateral aspect of the left maxilla. In addition, just adjacent to the inferior aspect of the anterior wall of the left maxillary sinus there is a fluid collection with peripheral enhancement and punctate air consistent with an abscess measuring 1.6 x 0.8 cm in axial dimension by 1.3cm in craniocaudal dimension. No bony abnormality in the adjacent maxilla or mandible. There is diffuse mucosal thickening of the left maxillary sinus, likely sequela of chronic sinusitis. Remainder of the paranasal sinuses and bilateral mastoids are clear. lung apices are clear. Mild left sided submandibular lymphadenopathy, likely reactive CXR - Sternotomy wires in place, no acute pulmonary process by my interpretation ECG Additional Comments: NSR at 97bpm, RBBB Code Status & VTE Plan Code Status FULL PG Care Time/CCT Total # of Minutes Spent Total Time Spent with Patient: Total time spent is greater than 50% in coordination of care (as documented) at patient's floor/unit and/or counseling patient: Coding Level of Care Code 42241 OBS Care - Level 3 Diagnoses Cellulitis and abscess of face L03.211; L02.01 Congenital heart disease Q24.9 GERD without esophagitis K21.9 Hypertension I10 Hypertension type: essential hypertension Hypertriglyceridemia E78.1 (1) Hypertension Hypertension type: essential hypertension Qualified Code(s): I10 - Essential (primary) hypertension
[2019-12-04] MEDS ORDERED: ACETAMINOPHEN 325 MG TAB PO PRN (01:13)
[2019-12-04] MEDS ORDERED: ONDANSETRON INJ 2 MG/ML 2 ML VIAL IV PRN ×2 (01:13→16:28)
[2019-12-04] MEDS: SODIUM CHLORIDE 0.9% 1000ML 1,000 ML IV SCH ×3 (01:54→18:29)
[2019-12-04] MEDS: AMPICILLIN/SULBACTAM SOD 3,000 MG in 0.9 % SODIUM CHLORIDE 100 ML IV SCH ×4 (01:54→19:18)
--- NOTE | 2019-12-04 07:23 | XRay Report ---
SINGLE VIEW CHEST CLINICAL HISTORY: Sepsis. FINDINGS: An AP, portable, upright chest radiograph is compared to study dated 09/26/2014. The examina tion is degraded by portable technique and patient rotation. The patient is status post midline paez otomy. The heart is enlarged. The pulmonary vasculature is noncongested. No airspace consolidation or pleural effusion is identified. No pneumothorax is seen. The bony thorax is grossly intact. IMPRESSION: Cardiac enlargement with no active disease in the chest. ACT 112: Negative or not required by law. Electronically signed by: Jose Borrero M.D. 12/04/2019 7:21 AM
--- NOTE | 2019-12-04 08:41 | CT Scan Report ---
CT SCAN OF THE NECK WITH IV CONTRAST CLINICAL HISTORY: Left maxillary swelling. COMPARISON STUDY: No priors. TECHNIQUE: Following the IV administration of 93 cc of Optiray 320, CT scan of the soft tissues of th e neck was performed from the skull base to the upper chest. Images are reviewed in the axial, sagitt al, and coronal planes. IV contrast was administered without complication. A dose lowering techniqu e was utilized adhering to the principles of ALARA. CT DOSE: 627.59 mGy.cm FINDINGS: Soft tissues: There is a 2.0 x 2.0 x 0.8 cm peripherally enhancing gas and fluid containing collectio n overlying the left maxilla, best seen on axial image #112. This is consistent with abscess, and ove rlying soft tissue infiltration indicates cellulitis. There is a small periapical lucency identified in the most posterior left maxillary molar. There is also significant paranasal sinus disease in the left maxillary antrum. Deep soft tissue fluid is seen tracking inferiorly in the left neck. Pharynx: The nasopharynx, oropharynx, and laryngeal pharynx are normal in appearance. The pharyngeal airway is widely patent. There is no evidence of mass lesion. The vocal cords are symmetric. The para pharyngeal fat is well maintained. The prevertebral/retropharyngeal soft tissues are within normal li mits. The epiglottis is normal. Lymphadenopathy: Prominent left cervical chain lymph nodes are likely on a reactive basis. Thyroid: Normal in size and attenuation. Salivary glands: The parotid and submandibular glands are within normal limits. Brain parenchyma: There is a 9 mm fat and calcification containing lesion in the suprasellar region s een on image #15. The visualized brain parenchyma at the skull base is otherwise normal in appearance . Vascular structures: The aortic arch demonstrates bovine variant anatomy. The carotid arteries and ju gular veins are widely patent. The basilar artery is diminutive with foci of high-grade stenosis. Skeletal structures: Imaged portions of the calvarium at the skull base are within normal limits. The cervical spine appears intact. No lytic or blastic lesion is seen. Sinuses and mastoids: There is moderate mucosal thickening within the left maxillary antrum. Trace mu cosal thickening is noted in the right maxillary antrum. The remaining visualized paranasal sinuses a re clear. The mastoid air cells are well pneumatized. Lung apices: Midline sternotomy wires are noted. Emphysematous change is noted in the upper lobes. Up per lobe lung parenchyma is otherwise clear as imaged. IMPRESSION: 1. There is a 2.0 cm organized fluid collection overlying the left maxilla consistent with abscess wi th overlying cellulitis. This is likely related to periodontal disease. 2. There is a 9 mm fat and calcification containing lesion identified in the suprasellar region. Diff erential considerations include osteolipoma or less likely dermoid/teratoma. Correlation with any rosey or outside imaging studies would be useful for comparison purposes. Consider MRI in follow-up. 3. Emphysema. 4. Additional findings as above. ACT 112: Negative or not required by law. Electronically signed by: Jose Borrero M.D. 12/04/2019 8:39 AM
[2019-12-04] MEDS: lisinopriL 10 MG TAB PO SCH (08:42)
[2019-12-04] MEDS: FENOFIBRATE NANOCRYSTALLIZED 145 MG TABLET PO SCH (08:42)
[2019-12-04] MEDS: hydroCHLOROthiazide 25 MG TAB PO SCH ×2 (08:42→09:35)
[2019-12-04] MEDS: PANTOprazole 40 MG TAB PO SCH (08:42)
--- NOTE | 2019-12-04 09:18 | Surgery Consultation ---
Date of Consultation December 04, 2019 Emergency Consult Oral Maxillofacial Surgery Exam Present Complaint: I have pain/swelling/drainage from my upper left teeth. Symptoms have been ongoing for a while they would come and go. Went to dentist in May 2019 with just pain upper left but dentist could not find any cause and felt it was periodontal problems. was placed on a mouth rinse--he did well until Sat Dec 01 when pain started , then on Wednesday facial swelling started with pain. A detailed oral exam was completed. Finding--swelling associated with the # 14 , tender gingival tissue with deep pocket formation. Drainage of the 2 cm abscess and # 14 Tooth removal is clinical indicated. Dental X rays from dentist The X Ray was reviewed, There is a very deep christianity on # 14 and what looks like a periapical lesion. Given history extraction/I&D needed The following teeth are decayed/fractured--#14 The following teeth are planned to be removed--# 14 CT scan --see report--I reviewed the CT and agree with the report 2 cm drainable fluid left face Soft tissue of the floor of the mouth, tongue, hard/soft palate, posterior pharyngeal area all with in normal limits, There is gross swelling in the left mucobuccal fold, infra orbital area (cheek) Cancer exam--No lesions noted that require follow up or Bx. Oral Care---Overall oral care is good Occlusion---Class I TMJ exam: No pop, clicking, pain, good ROM, No history of TMJ injury or dysfunction Periodontal exam---overall good but gross gingival /mucobuccal swelling due to current dental problem # 14 Neck is supple, FROM, Able to extend and flex neck w/o difficulty, no masses, no abnormalities, no airway issues, no evidence of sleep apnea. Plan: received and reviewed dental X rays from the dentist Set up with general anesthesia in hospital to drain infection and remove tooth # 14 Risks reviewed (see below) Physical exam completed consent reviewed and signed I reviewed the treatment plan and consent with the patient and his father. Understanding was expressed. Time was given for questions regarding the surgery, risks and post op care. The procedure will be set up today. Aware of ? COVID status Review of informed consent with patient (and his father) Reason for surgery to removal fractured decayed tooth an I&D large facial abscess Left side : The # 14 and I&D removal is indicated and medically necessary. The following teeth are decayed and fractured and removal is indicated JAY: # 14 Risks discussed: Pain,swelling,infection, dry socket, delayed healing, nerve injury to face,lips,tongue,chin area which could be permanent (rare). TMJ, jaw stiffness, change in bite (rare), ear pain (referred). Sinus problems like fistula or infection. Need to leave a small root fragment in place to avoid injury to nerve or sinus. Home care reviewed--tooth brushing, rinsing, follow up care with Dr Baum. diet=[id number]-wboc dental. Discussed activity level, driving/work while on Rx pain Meds. Plan: For the GA and surgery at Hospital History of Present Illness Attending Physician: Rip Littlejohn DO Allergies Allergy/AdvReac Type Severity Reaction Status Date / Time No Known Drug Allergies Allergy Verified 08/29/19 13:07 Home Medications Home Medications Medication Instructions Recorded Confirmed Type clotrimazole 1 % topical cream 1 appln TOPICAL BID PRN #45 gm 12/30/18 12/03/19 History lisinopril 10 mg tablet 10 mg PO QAM #30 tab 12/30/18 12/03/19 History multivitamin 1 tab PO QAM 12/30/18 12/03/19 History hydrochlorothiazide 25 mg PO QAM 04/25/19 12/03/19 History pantoprazole 40 mg PO QAM 04/25/19 12/03/19 History fenofibrate nanocrystallized 145 145 mg PO QAM #90 tab 07/19/19 12/03/19 Rx mg tablet Penicillin Tab 500 mg PO TID 12/03/19 12/03/19 History ibuprofen [Advil] 400 - 600 mg PO Q6H PRN 12/03/19 12/03/19 History Patient History Medical History Carpal tunnel syndrome of left wrist Cognitive developmental delay Congenital heart disease FOLLOWS WITH [facility] GERD without esophagitis Hypertension Hypertriglyceridemia Iron deficiency Prediabetes DIET CONTROL [facility] DUE TO CONGENITAL DEFECTS Surgical History H/O heart surgery (06/2010) repair of double chambered right ventricle and reasastomosis left superior pulm vein to left atrial appendage and closure of VSD > 2010 > [facility] [place] > FOLLOWS DR. 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 Beliefs That Will Affect Care: None marital status: Single Current Living Situation: Parent current occupational status: unemployed Other Information That Helps Us Care for You: No Feels Safe at Home: Yes Safety Concerns: Feels Safe At This Time Childhood Exposure to Second-Hand Smoke: No caffeine: Yes (Soda x 1 per day.) during the past year weight has: remained stable Dental Care, Regularly: Yes Physical Activity Frequency: 3-4 Times per Week Seatbelt Use: always Sunscreen Use: Yes Results & Data ([facility]) Vital Signs (Past 12 Hours) Vital Signs Temp Pulse Pulse Resp BP BP Pulse Ox 12/04/19 07:32 37.7 C H 96 H 18 99/65 L 96 12/04/19 01:14 37.4 C 75 16 131/82 99 12/04/19 01:00 96 H 16 127/75 99 12/04/19 00:30 86 28 H 123/74 12/04/19 00:13 90 28 H 123/78 98 12/03/19 23:25 95 H 30 H 138/82 97 12/03/19 23:00 96 H 18 138/82 97 PG Care Time/CCT Total # of Minutes Spent Total Time Spent with Patient: Total time spent is greater than 50% in coordination of care (as documented) at patient's floor/unit and/or counseling patient: Coding Level of Care Code 18908 Inpt Consult Level 3
--- NOTE | 2019-12-04 10:43 | Hospitalist Progress Note ---
Date of Service December 04, 2019 Assessment & Plan Admission and Anticipated Discharge Date Admission Date: December 04, 2019 Results & Data Results & Data ([facility]) Vital Signs (Past 12 Hours) Vital Signs Temp Pulse Pulse Resp BP BP Pulse Ox 12/04/19 07:32 37.7 C H 96 H 18 99/65 L 96 12/04/19 01:14 37.4 C 75 16 131/82 99 12/04/19 01:00 96 H 16 127/75 99 12/04/19 00:30 86 28 H 123/74 12/04/19 00:13 90 28 H 123/78 98 12/03/19 23:25 95 H 30 H 138/82 97 12/03/19 23:00 96 H 18 138/82 97
[2019-12-04] MEDS ORDERED: CHLORHEXIDINE GLUCONATE 0.12% 480 ML ONE (14:16)
[2019-12-04] MEDS ORDERED: BUPIVACAINE/EPINEPHRINE 0.5% 1:200,000 1.8 ML CARP ONE (14:16)
[2019-12-04] MEDS ORDERED: PROPOFOL IV EMULSION 10 MG/ML 20 ML VIAL IV ONE (14:19)
[2019-12-04] MEDS ORDERED: ONDANSETRON INJ 2 MG/ML 2 ML VIAL ONE (14:19)
[2019-12-04] MEDS ORDERED: fentaNYL citrate 100 MCG/2 ML VIAL ONE ×2 (14:19→15:26)
[2019-12-04] MEDS ORDERED: KETOROLAC 30 MG/ML VIAL ONE (14:19)
[2019-12-04] MEDS ORDERED: DEXAMETHASONE SOD INJ 4 MG/ML VIAL ONE (14:19)
[2019-12-04] MEDS ORDERED: MIDAZOLAM HCL 1 MG/ML 2ML VIAL ONE (14:19)
[2019-12-04] MEDS ORDERED: ROCURONIUM BROMIDE 10 MG/ML 5 ML VIAL IV ONE (14:19)
[2019-12-04] MEDS ORDERED: LIDOCAINE HCL 2% 2 ML VIAL/AMP(20MG/ML) INFIL ONE (14:19)
[2019-12-04] MEDS ORDERED: LARYING-O-JET KIT (LTA) ONE (14:19)
[2019-12-04] MEDS ORDERED: SUCCINYLCHOLINE CHLORIDE 20 MG/ML 10 ML VIAL IV ONE ×2 (14:19→14:37)
--- NOTE | 2019-12-04 14:32 | History & Physical Bridge Note ---
Date of Service December 04, 2019 History & Physical Bridge Note I have examined the patient, reviewed the History & Physical and in the interval since the performance of the History & Physical I have noted the following changes of clinical significance: no changes noted. COVID-Neg Plan I&D extraction # 14
--- NOTE | 2019-12-04 14:40 | Anesthesiology Consultation ---
Date of Service December 04, 2019 Assessment & Plan (1) Encounter for pre-operative examination: Chart Review Chart Review: Acceptable Risk for Surgery and Patient NOT seen in Pre Admission Testing Consults Requested none ASA ASA3 Proposed Anesthesia Anesthesia Type: General Anesthesia Line Insertion: Arterial line Risk / Benefits Reviewed With: PT / POA / Parent / Guardian, Accepts Plan and Informed Consent Obtained History Surgery Operation Date: 12/04/19 08:40 Proposed Procedures p Left Face Incision and Drainage, Extraction of Tooth #14 - Reagan Baum, [place] Height/Weight Height: 5 ft 5 in Weight: 85.5 kg Allergies Allergy/AdvReac Type Severity Reaction Status Date / Time No Known Drug Allergies Allergy Verified 08/29/19 13:07 Medications Home Medications Medication Instructions Recorded Confirmed Last Taken clotrimazole 1 % topical cream 1 appln TOPICAL BID PRN #45 gm 12/30/18 12/03/19 Unknown lisinopril 10 mg tablet 10 mg PO QAM #30 tab 12/30/18 12/03/19 05/08/19 multivitamin 1 tab PO QAM 12/30/18 12/03/19 05/08/19 hydrochlorothiazide 25 mg PO QAM 04/25/19 12/03/19 05/08/19 pantoprazole 40 mg PO QAM 04/25/19 12/03/19 05/09/19 fenofibrate nanocrystallized 145 145 mg PO QAM #90 tab 07/19/19 12/03/19 Unknown mg tablet Penicillin Tab 500 mg PO TID 12/03/19 12/03/19 12/03/19 14:30 ibuprofen [Advil] 400 - 600 mg PO Q6H PRN 12/03/19 12/03/19 12/03/19 16:00 Active Medications Generic Name Dose Route Start Last Admin Trade Name Freq PRN Reason Stop Dose Admin Fenofibrate 145 mg 12/04/19 09:00 12/04/19 08:42 Fenofibrate Nanocrystallized 145 Mg Tablet PO 01/03/20 08:59 145 mg QAM EMRE Administration Hydrochlorothiazide 25 mg 12/04/19 09:00 12/04/19 09:35 Hydrochlorothiazide 25 Mg Tab PO 01/03/20 08:59 Not Given QAM EMRE Ampicillin Sodium/Sulbactam 108 mls @ 200 mls/hr 12/04/19 02:00 12/04/19 13:46 Sodium 3,000 mg/ Sodium IV 12/14/19 01:59 200 mls/hr Chloride Q6H EMRE Administration Protocol Sodium Chloride 1,000 mls @ 80 mls/hr 12/04/19 01:13 12/04/19 13:46 Nss 1000ml IV 12/05/19 02:12 0 mls/hr .[id number] EMRE Infusion Lisinopril 10 mg 12/04/19 09:00 12/04/19 08:42 Lisinopril 10 Mg Tab PO 01/03/20 08:59 Not Given QAM EMRE Pantoprazole Sodium 40 mg 12/04/19 09:00 12/04/19 08:42 Pantoprazole 40 Mg Tab PO 01/03/20 08:59 40 mg QAM EMRE Administration NPO Date Last Intake of Fluids: 12/04/19 Time Last Intake of Fluids: 08:42 Last Intake of Fluids Comment: sips with medication. Date Last Intake of Solids: 12/03/19 Time Last Intake of Solids: 11:59 Last Intake of Solids Comment: prior to midnight. Past Medical History Medical History Carpal tunnel syndrome of left wrist Cognitive developmental delay Congenital heart disease FOLLOWS WITH [facility] GERD without esophagitis Hypertension Hypertriglyceridemia Iron deficiency Prediabetes DIET CONTROL Pulmonary vein stenosis FOLLOWS WITH [facility] syndrome DUE TO CONGENITAL DEFECTS Exercise / Class Metabolic Activity II 4-5 Yardwork/Stairs/Walk up hill Past Family History Family History Grandfather Colorectal cancer Myocardial infarction Father Diabetes Brother Melanoma Denies family history of Ovarian cancer Prostate cancer Breast cancer Past Surgical History Surgical History H/O heart surgery (06/2010) repair of double chambered right ventricle and reasastomosis left superior pulm vein to left atrial appendage and closure of VSD > 2010 > [facility] > FOLLOWS DR. MCKNIGHT> @ [facility] History of cardiac cath 2 YRS AGO >JUST FOR FOLLOW UP OF 2010 HEART SURGERY> [facility] > NO STENTS S/P carpal tunnel release Past Anesthesia History No Hx of Anesthesia Complications and No Family Hx of Anesthesia Complications History of PONV No Hx of PONV and No Hx of Motion Sickness Social History Smoking Status: Never smoker Hx Alcohol Use: No Alcohol type: beer alcohol intake frequency: a few times a week Hx Substance Use: No substance use type: does not use Physical Exam Vital Signs Last Vital Signs Temp 36.7 C 12/04/19 13:13 Pulse 96 H 12/04/19 07:32 Resp 18 12/04/19 07:32 BP 99/65 L 12/04/19 07:32 Pulse Ox 96 12/04/19 07:32 ENMT Mouth: no dentition abnormality Thyromental Distance: > or= 3.5 Finger Breadths Mallampati Class: II Neck normal visual inspection Respiratory normal respiratory effort Auscultation: lungs clear to auscultation bilaterally Cardiovascular Rate/Rhythm: regular rate and regular rhythm Psychiatric Orientation: alert Testing Laboratory Results 12/03/19 23:07 12/03/19 22:00 PT 11.1 Seconds (9.0-12.0) 12/03/19 23:07 INR 1.1 (0.9-1.1) 12/03/19 23:07 APTT 30.3 Seconds (21.0-31.0) 12/03/19 23:07
[2019-12-04] MEDS ORDERED: SURGICEL ABSORB HEMOSTAT 2IN X 14IN TOP ONE (15:41)
--- NOTE | 2019-12-04 16:02 | Post Operative Brief Note ---
PG Immediate Post Op with CF Date of Surgery December 04, 2019 Pre & Post Diagnosis Operation Date: 12/04/19 08:40 Pre-Op Diagnosis: FACIAL ABSCESS Post-Op Diagnosis: FACIAL ABSCESS I identified the patient and participated in the time-out.: Yes Procedure Operation Date: 12/04/19 08:40 Actual Procedures p Left Face Incision and Drainage, Extraction of Tooth #13, & #14(Left) - Reagan Baum DMD Surgeon Reagan Baum DMD Data Entry Specialist none Estimated Blood Loss 10 Findings Consistent with Post-Op Diagnosis Specimens Specimen Description: Culture #1: Left Facial Abscess
[2019-12-04] MEDS ORDERED: ACETAMINOPHEN/HYDROCODONE ELIX 15 ML/CUP UDP PO PRN (16:25)
[2019-12-04] MEDS ORDERED: ePHEDrine sulfate 50 MG/ML AMP IV PRN (16:28)
[2019-12-04] MEDS ORDERED: fentaNYL citrate 100 MCG/2 ML VIAL IV PRN (16:28)
[2019-12-04] MEDS ORDERED: ATROPINE SULFATE 0.1 MG/ML 10ML SYR IV PRN (16:28)
--- NOTE | 2019-12-04 17:56 | Anesthesiology Progress Note ---
Date of Service December 04, 2019 Anesthesia Post Procedure Vital Signs Vital Signs: Temp Pulse Pulse Pulse Resp BP BP 12/04/19 17:51 99.3 F 108 H 20 135/67 12/04/19 17:40 106 H 26 H 124/62 12/04/19 17:30 115 H 24 128/73 12/04/19 17:20 122 H 20 125/69 12/04/19 17:10 121 H 20 122/70 12/04/19 17:00 99.0 F 122 H 16 137/70 12/04/19 16:50 112 H 16 147/76 H 12/04/19 16:40 110 H 18 143/79 H 12/04/19 16:30 119 H 22 135/80 12/04/19 16:20 120 H 18 155/89 H 12/04/19 16:13 99.1 F 114 H 20 114/79 12/04/19 14:39 100.8 F H 93 H 18 124/73 12/04/19 13:13 98.1 F 12/04/19 11:04 99.1 F 12/04/19 07:32 99.9 F H 96 H 18 99/65 L 12/04/19 01:14 99.3 F 75 16 131/82 12/04/19 01:00 96 H 16 127/75 12/04/19 00:30 86 28 H 123/74 12/04/19 00:13 90 28 H 123/78 12/03/19 23:25 95 H 30 H 138/82 12/03/19 23:00 96 H 18 138/82 12/03/19 21:01 99.5 F 105 H 20 126/77 Pulse Ox 12/04/19 17:51 99 12/04/19 17:40 99 12/04/19 17:30 95 12/04/19 17:20 96 12/04/19 17:10 95 12/04/19 17:00 94 12/04/19 16:50 95 12/04/19 16:40 95 12/04/19 16:30 93 12/04/19 16:20 95 12/04/19 16:13 94 12/04/19 14:39 100 12/04/19 13:13 12/04/19 11:04 12/04/19 07:32 96 12/04/19 01:14 99 12/04/19 01:00 99 12/04/19 00:30 12/04/19 00:13 98 12/03/19 23:25 97 12/03/19 23:00 97 12/03/19 21:01 100 Transfer of Care Handoff Completed per policy Notes Mental Status: alert / awake / arousable and participated in evaluation Patient Amnestic to Procedure: Yes Nausea / Vomiting: adequately controlled Pain: adequately controlled Airway Patency, RR, SpO2: stable & adequate BP & HR: stable & adequate Hydration State: stable & adequate Anesthetic Complications: no major complications apparent and Pt Satisfied with anesthetic care
[2019-12-05] MEDS: AMPICILLIN/SULBACTAM SOD 3,000 MG in 0.9 % SODIUM CHLORIDE 100 ML IV SCH ×2 (01:58→07:46)
--- NOTE | 2019-12-05 06:43 | Electrocardiogram Report ---
Test Reason : Blood Pressure : / mmHG Vent. Rate : 097 BPM Atrial Rate : 097 BPM P-R Int : 142 ms QRS Dur : 148 ms QT Int : 392 ms P-R-T Axes : 051 070 000 degrees QTc Int : 497 ms Normal sinus rhythm Right bundle branch block T wave abnormality, consider inferior ischemia Abnormal ECG No previous ECGs available Confirmed by Chaitanya Tobin ([id number]) on 12/05/2019 6:42:42 AM Referred By: REFERRED SELF Confirmed By:Chaitanya Tobin
[2019-12-05] MEDS: hydroCHLOROthiazide 25 MG TAB PO SCH (07:47)
[2019-12-05] MEDS: FENOFIBRATE NANOCRYSTALLIZED 145 MG TABLET PO SCH (07:47)
[2019-12-05] MEDS: PANTOprazole 40 MG TAB PO SCH (07:47)
[2019-12-05] MEDS: lisinopriL 10 MG TAB PO SCH (07:47)
--- NOTE | 2019-12-05 09:57 | Progress Note ---
Date of Service is doing very well Swelling has gone down and he is feeling good no drainage noted. Drain in place, VS stable, OOB and walking the halls with his father OK for D/C today resume all home Meds RX Augmentin 875 Suggested heat, massage, diet as tolerated POST OP at 12:30 for drain removal --father aware December 05, 2019 Assessment & Plan Admission and Anticipated Discharge Date Admission Date: December 04, 2019 Results & Data ([facility]) Vital Signs (Past 12 Hours) Vital Signs Temp Pulse Pulse Resp BP BP Pulse Ox 12/05/19 08:48 37.4 C 88 18 128/72 99 12/05/19 02:37 37.4 C 82 16 105/66 98 12/04/19 22:49 36.6 C 81 16 101/64 94 PG Care Time/CCT Total # of Minutes Spent Total Time Spent with Patient: Total time spent is greater than 50% in coordination of care (as documented) at patient's floor/unit and/or counseling patient: Coding Level of Care Code 58402 Subseq Hosp Care Lvl 1
--- NOTE | 2019-12-05 10:38 | Discharge Summary ---
Date of Service December 05, 2019 Admission HPI Per Admitting Provider Brian Babcock is a 44yo C male with history of congenital heart defect s/p repair, HTN, HLP and GERD presenting with left facial cellulitis. Patient had soreness of left maxillary gum on buccal side that began 2 days ago. . He took some Amoxicillin and Advil at home on Wednesday then took some Penicillin this morning. He notes some improvement in swelling. Pain is well controlled No trauma, no tooth complaints Patient denies swelling of throat, palate, difficulty swallowing or breathing. Denies drainage or foul taste in mouth. No additional complaints at this time. ER Course: Cefepime, IVF Admission Exam Per Admitting Provider General: patient resting comfortably, NAD, non-toxic in appearance, AA&O x 4 Skin: warm, dry, intact, redness and swelling of left face HEENT: NC/AT, PERRL, EOMI, anicteric sclera, conjunctiva without injection, external ear normal to inspection and nontender, nares patent, moist mucus membranes, dentition intact, no oropharyngeal lesions, neck supple, trachea midline, no LAD, no thyromegaly, no JVD. Redness and swelling of left face, tender to palpation. Heart: +S1/S2, regular, no m/r/g Lungs: equal air entry bilaterally, no rales/rhonchi/wheezes Abd: +BS, soft, NT/ND, no masses/organomegaly/ascites Ext: warm, 2+ pulses in UE/LE bilaterally, no clubbing/cyanosis or edema Neuro: nonfocal, patient AA&O x 4, speech intact, no facial droop, moving all extremities on command with equal strength 5/5 Principal Diagnosis Facial Abscess Discharge Exam Constitutional WD/WN, vitals as above ENMT Nose: no external nose abnormality and no sinus tenderness Mouth: + lip abnormality (small lesion on the lower lip R of the midline ) Neck trachea midline, no thyromegaly Respiratory normal respiratory effort, lungs clear to auscultation Cardiovascular RRR, no murmur, no edema Gastrointestinal (Abdomen) normal bowel sounds, soft, nontender, no hepatosplenomegaly Discharge Data Allergies Allergy/AdvReac Type Severity Reaction Status Date / Time No Known Drug Allergies Allergy Verified 08/29/19 13:07 Consultations 12/03/19 23:33 ED Decision to Admit Stat 12/04/19 01:13 Consult Oromaxillofacial Surgery Routine Procedures Performed Operation Date: 12/04/19 08:40 Actual Procedures p Extraction of Tooth #13, & #14(Left) - Reagan Baum DMD s Left Face Incision and Drainage,(Left) - Reagan Baum DMD Ordered Studies 12/03/19 21:27 CT soft tissue neck w con Stat Hospital Course (1) Cellulitis and abscess of face: 44yo C male with history of congenital heart defect s/p repair, HTN/HLP/GERD presenting with cellulitis of left face, abscess. Patient afebrile, HD stable, nontoxic in appearance. Acute Abscess of Maxillary Sinus -Abscess noted in maxillary sinus on CT -Treated with Unasyn 3000mg IV q6h -Underwent I&D and removal of tooth #13 and #14 with [facility] on 12/04/19 -Discharge OK per [facility]FS with close follow up and Augmentin (2) Acute abscess of maxillary sinus: Total Time Total Time Spent Total Time Spent (In Minutes): <30 Discharge Plan Discharge Items Patient Disposition: Home - Self-Care Reason For Visit: FACIAL ABSCESS Discharge Diagnosis: s/p facial abscess left side carious teeth Condition on Discharge: Good Activity: Resume your previous activity Lifting: Gradually increase as tolerated Bathing: No limitations Exercise/Sports: Gradually increase as tolerated Weightbearing: Full weightbearing Non-emergency contact: Surgeon Call non-emergency contact if: you have any medication questions, your temperature is above 101, your temperature is above 101.5, your wound has increased redness, your wound has increased drainage and your wound pain has increased Follow-up/Referrals: Johanna Moreno DO [Primary Care Provider] - Reagan Baum DMD [Physician] - 12/07/19 12:45 pm Diet: Regular Diet Texture: Easy to Chew Addtl Attending Provider Instructions: ADDITIONAL ACTIVITY RECOMMENDATIONS: * Walker teeth after every meal. It is very important to keep your mouth clean to prevent infection. SPECIAL CARE INSTRUCTIONS: * Please apply heat (hot water bottle or heating pad) for the next two days, as often as possible. * Today start rinsing your mouth with 1/2 teaspoon salt in 8 ounces warm water. This rinse should be used every 4-6 hours. * Use the peridex 2 x a day * You may experience slight nausea. To prevent this, never take your medication on an empty stomach. If nauseated, take small sips of efren taqueria until you feel better; then you may start on applesauce and toast. * Some swelling is common. It should gradually decrease within 4-5 days. * A certain amount of bleeding is to be expected. It is often possible to control mild oozing by placing folded gauze over the area and biting down for 30 minutes. If you are unable to control excessive bleeding, call Dr Baum at [phone] * You may experience some discomfort for a few days. If pain or swelling increases, Call Dr Baum Pending Studies at Discharge: Yes Studies:: C and S results Stand-Alone Forms: [facility], Smoking Cessation Medications and DC Order Prescriptions: New amoxicillin-pot clavulanate 875-125 mg tablet 1 tab PO BID Qty: 20 RF: 0 Continued fenofibrate nanocrystallized 145 mg tablet 145 mg PO QAM Qty: 90 RF: 1 clotrimazole 1 % cream 1 appln topical BID PRN (Reason: Rash) Qty: 45 RF: 0 lisinopril 10 mg tablet 10 mg PO QAM Qty: 30 RF: 0 multivitamin [Daily Multi-Vitamin] tablet 1 tab PO QAM RF: 0 pantoprazole 40 mg tablet,delayed release (DR/EC) 40 mg PO QAM RF: 0 hydrochlorothiazide 25 mg tablet 25 mg PO QAM RF: 0 ibuprofen [Advil] 200 mg Tablet 400 - 600 mg PO Q6H PRN (Reason: Pain) RF: 0 Penicillin Tab 500 mg PO TID RF: 0 Discharge Orders: Discharge Order (Routine); Ordered 12/05/19 Ordered By: Reagan Baum Admission Data Admit Date/Time: 12/04/19 00:15 Attending Provider: Rip Littlejohn Admit Provider: Bernie Castellanos Primary Care Provider: Johanna Moreno Other Providers: Bernie Castellanos ; Reagan Baum Other Interventions: Discharge Summary Assessment (RN) Last Done: 12/05/19 10:26 Supervising Physician Co-Signing Physician Notes I personally examined the patient and verified all obrien points of history and exam, discussed case, and agree with decision making with Dr Ifrah. feeling better hoping to go home vitals ntoed nad facial swelling improving. no focal neuro deficits infected tooth/facial cellulitis - improved post drainage. safe for home on augmentin, otherwise as above Resident Activity Tracking Resident Involvement: Resident Care Provided Care Provided: Adult [facility] Medicine
--- NOTE | 2019-12-05 20:13 | Billing Data ---
Date of Service December 05, 2019 Coding Level of Care Code 05724 OBS Care - Discharge
--- NOTE | 2019-12-20 10:33 | Operative Report ---
Post Operative Report Pre & Post Diagnosis Operation Date: 12/04/19 08:40 Pre-Op Diagnosis: FACIAL ABSCESS Post-Op Diagnosis: FACIAL ABSCESS I identified the patient and participated in the time-out.: Yes Procedure Operation Date: 12/04/19 08:40 Actual Procedures p Extraction of Tooth #13, & #14(Left) - Reagan Baum DMD s Left Face Incision and Drainage,(Left) - Reagan Baum DMD Actual Procedures p Incision and Drainage left upper facial Abscess; Removal of Tooth 13 and 14 - Reagan Baum DMD Once cleared for surgery general anesthesia was achieved, the eyes were protected by the anesthesia dept criteria. A time out was take for patient ID, antibiotics, equipment and position verification once all agreed the procedure began. Local anesthesia using Marcaine with a vasoconstrictor ( 1.8 ml per site) given A throat pack was placed after the oral cavity was irrigated with saline. Once a surgical level of anesthesia was obtained and the local anesthesia was given time for the blocks the surgery was started. I turned my attention to the infection which was located in the lateral nasal and mucobuccal fold area, cheek and periorbital area. The infection was caused by an abscessed carious # 13 and 14 Incision and Drainage Using a 15 blade an incision was made lateral to the alveolar ridge in the upper left mucobuccal fold. Once the incision was made a lot of pus extruded from the site. This drainage was cultured for anaerobic and aerobic bacteria. A curved hemostat was carefully placed into the infected space along the medial side of the upper anterior jaw and into the lateral nasal and periorbital space. Some further drainage was now allowed to escape. I palpated the area/cheek and zygoma l area and no further drainage was expressed. The area was irrigated with at least 100 ml of NS solution. I now turned my attention to remove teeth 13 and 14 Upper # 13 and 14 The full thick Muco-periosteal flap was made on the facial aspect from # 11-15. The flap was reflected to expose the the subperiosteal space the bone adjacent to teeth 13 and 14. The rogue was used to remove bone, the tooth was removed with a 301 elevator, there was a large amount of granulation tissue on the apex and some more pus that was expressed. The tissue was very swollen and difficult to suture. I was able to place a dillon drain from the oral cavity into the lateral nasal area and sutured it in place with a 3 -0 chromic. Bleeding was controlled. When the procedure was completed I inspected the sites to insure all bleeding was controlled. I removed the throat pack and suctioned the throat. A gauze pressure dressing was placed. All instrument and sponge count was correct. the patient was allowed to awake from the anesthesia. Once full awake the anesthesia tube was removed and the patient was taken to the recovery room with all vital sign stable. The patient tolerated the surgery very well. I will follow the patient in my office, Rx and instructions will be given upon discharge. Surgeon Reagan Baum, DMD [employer] none Estimated Blood Loss 10 Findings Consistent with Post-Op Diagnosis Specimens C&S upper left facial infection Lateral nasal and periorbital area Description of Procedure I&D extraction of carious teeth 13 & 14 I attest to the content of the Intraoperative Record and any orders documented therein. Any exceptions are noted below.
== END 2019-12-05 11:12 | disposition home or self-care (01) ==
LOC: 3N 20:56 → ED 20:56 → SUATTDRO 12-04 00:15 → 3N 12-04 01:00